=== PATIENT | male | born 1960 | race Caucasian/White ===

== ENCOUNTER 2018-09-22 01:42 | Outpatient (CLI) | payer OTHER, SELFPAY ==
[2018-09-23 10:31] LABS: PSA, Diagnostic 3.5 ng/ml (0-3.5)
== END 2018-09-22 02:02 ==
PROVIDERS: PCP Emergency Medicine; Visit Provider Emergency Medicine
DX: R97.20 Elevated prostate specific antigen [PSA] (principal)
CPT/HCPCS: 36415; 84153

== ENCOUNTER 2019-11-03 15:38 | Outpatient (REF) | payer OTHER, SELFPAY ==
[2019-11-03 22:18] LABS: PSA, Screening 3.8 ng/mL (0.0-3.5)
== END 2019-11-03 15:58 ==
LOC: LBN 15:38
PROVIDERS: PCP Emergency Medicine; Visit Provider Emergency Medicine
DX: Z12.5 Encounter for screening for malignant neoplasm of prostate (principal)
CPT/HCPCS: 84153

== ENCOUNTER 2020-05-10 03:34 | Outpatient (CLI) | payer OTHER, SELFPAY ==
[2020-05-10 17:35] LABS: PSA, Diagnostic 6.6 ng/mL (0.0-3.5)
== END 2020-05-10 03:35 | disposition home or self-care (01) ==
LOC: LOS 03:35
PROVIDERS: PCP Emergency Medicine; Visit Provider Emergency Medicine
DX: R97.20 Elevated prostate specific antigen [PSA] (principal)
CPT/HCPCS: 36415; 84153

== ENCOUNTER 2020-08-04 01:53 | Outpatient (CLI) | payer OTHER, SELFPAY ==
[2020-08-05 19:41] LABS: Free PSA/PSA Ratio 0.16 ratio
== END 2020-08-04 01:54 | disposition home or self-care (01) ==
LOC: LOS 01:54
PROVIDERS: PCP Emergency Medicine; Visit Provider Nurse Practitioner Gerontology
DX: R97.20 Elevated prostate specific antigen [PSA] (principal)
CPT/HCPCS: 36415; 84154

== ENCOUNTER 2020-11-08 15:08 | Outpatient (REF) | payer OTHER, SELFPAY ==
[2020-11-08 17:23] LABS: Calculated LDL 129 mg/dL (<100); Cholesterol 188 mg/dL (<200); HDL Cholesterol 35 mg/dL (40-60); Triglyceride 124 mg/dL (<150)
== END 2020-11-08 15:09 | disposition home or self-care (01) ==
LOC: NCHCN 15:08
PROVIDERS: PCP Emergency Medicine; Visit Provider Emergency Medicine
DX: Z00.00 Encounter for general adult medical examination without abnormal findings (principal); Z13.220 Encounter for screening for lipoid disorders
CPT/HCPCS: 80061

== ENCOUNTER 2021-02-15 08:54 | Outpatient (CLI) | payer OTHER, SELFPAY ==
[2021-02-17 12:44] LABS: COVID-19 RT-PCR UVMMC Result Negative (Negative)
== END 2021-02-15 08:55 | disposition home or self-care (01) ==
LOC: LBO 08:56
PROVIDERS: PCP Emergency Medicine; Visit Provider Emergency Medicine
DX: Z20.822 Contact with and (suspected) exposure to COVID-19 (principal)
CPT/HCPCS: U0003

== ENCOUNTER 2021-08-17 02:26 | Outpatient (CLI) | payer OTHER, SELFPAY ==
[2021-08-17 22:24] LABS: PSA, Screening 4.9 ng/mL (<=3.5)
== END 2021-08-17 02:27 | disposition home or self-care (01) ==
LOC: LOS 02:26
PROVIDERS: Nurse Practitioner Gerontology; PCP Nurse Practitioner Family; Visit Provider Nurse Practitioner Family
DX: R97.20 Elevated prostate specific antigen [PSA] (principal); Z12.5 Encounter for screening for malignant neoplasm of prostate
CPT/HCPCS: 36415; 84153

== ENCOUNTER 2022-08-17 01:11 | Outpatient (CLI) | payer OTHER, SELFPAY | END 2022-08-17 01:12 | disposition home or self-care (01) | LOC: LOS 01:11 | PROVIDERS: Nurse Practitioner Gerontology; PCP Nurse Practitioner Family; Referring Provider Nurse Practitioner Family; Visit Provider Nurse Practitioner Family | DX: R97.20 Elevated prostate specific antigen [PSA] (principal) | CPT/HCPCS: 36415; 84153 ==

== ENCOUNTER 2023-02-27 04:41 | Outpatient (CLI) | payer OTHER, SELFPAY ==
[2023-02-27 17:56] LABS: PSA, Screening 4.9 ng/mL (<=4.5)
== END 2023-02-27 04:42 | disposition home or self-care (01) ==
LOC: LOS 04:41
PROVIDERS: PCP Nurse Practitioner Family; Referring Provider Nurse Practitioner Gerontology; Visit Provider Nurse Practitioner Gerontology
DX: R39.9 Unspecified symptoms and signs involving the genitourinary system (principal); R97.20 Elevated prostate specific antigen [PSA]
CPT/HCPCS: 36415; 84153

== ENCOUNTER 2023-08-28 01:51 | Outpatient (CLI) | payer OTHER, SELFPAY ==
[2023-08-28 19:14] LABS: PSA, Diagnostic 8.3 ng/mL (<=4.5)
== END 2023-08-28 01:52 | disposition home or self-care (01) ==
PROVIDERS: PCP Nurse Practitioner Family; Referring Provider Nurse Practitioner Family; Visit Provider Nurse Practitioner Gerontology
DX: R97.20 Elevated prostate specific antigen [PSA] (principal)
CPT/HCPCS: 36415; 84153

== ENCOUNTER → 2023-09-10 13:02 | Outpatient (CLI) | payer OTHER, SELFPAY ==
--- NOTE | 2023-09-10 11:00 | DI.RAD_ITS ---
Exam(s) XR ORBITS EXAM: XR ORBITS INDICATION: hx of metal in eye. Pt needs prior to MRI at [facility] [place] [phone]. COMPARISON: CT HEAD WITHOUT CONTRAST from 05/30/2017 TECHNIQUE: 2D digital imaging was performed. FINDINGS: No radiopaque foreign bodies are seen in the orbits. The visualized paranasal sinuses are clear. Th e mastoid air cells are clear. IMPRESSION: No radiopaque foreign bodies are seen in the orbits. DATA REPOSITORY: RADIATION DOSE DELIVERED:
== END ==
PROVIDERS: PCP Nurse Practitioner Family; Visit Provider Nurse Practitioner Gerontology
DX: Z98.890 Other specified postprocedural states (principal)
CPT/HCPCS: 70200

== ENCOUNTER 2024-03-25 01:13 | Outpatient (CLI) | payer OTHER, SELFPAY ==
[2024-03-25 12:40] LABS: Calculated LDL 142 mg/dL (<100); Cholesterol 223 mg/dL (<200); HDL Cholesterol 43 mg/dL (40-60); Triglyceride 190 mg/dL (<150)
[2024-03-25 12:56] LABS: Hemoglobin A1C 5.4 % (<5.7)
[2024-03-25 21:11] LABS: PSA, Screening 6.9 ng/mL (<=4.5)
== END 2024-03-25 01:14 | disposition home or self-care (01) ==
LOC: LOS 01:13
PROVIDERS: PCP Nurse Practitioner Family; Referring Provider Nurse Practitioner Gerontology; Visit Provider Nurse Practitioner Gerontology
DX: Z13.220 Encounter for screening for lipoid disorders (principal); Z13.1 Encounter for screening for diabetes mellitus; R39.9 Unspecified symptoms and signs involving the genitourinary system; R97.20 Elevated prostate specific antigen [PSA]; N40.1 Benign prostatic hyperplasia with lower urinary tract symptoms; N13.8 Other obstructive and reflux uropathy
CPT/HCPCS: 36415; 80061; 84153; 83036

== ENCOUNTER 2024-09-30 03:56 | Outpatient (CLI) | payer OTHER, SELFPAY ==
[2024-09-30 18:08] LABS: PSA, Diagnostic 5.8 ng/mL (<=4.5)
== END 2024-09-30 03:57 | disposition home or self-care (01) ==
LOC: LOS 03:56
PROVIDERS: Nurse Practitioner Gerontology; PCP Nurse Practitioner Family; Visit Provider Nurse Practitioner Family
DX: R97.20 Elevated prostate specific antigen [PSA] (principal); N40.1 Benign prostatic hyperplasia with lower urinary tract symptoms; N13.8 Other obstructive and reflux uropathy
CPT/HCPCS: 36415; 84153